=== PATIENT | male | born 1965 | race Two or more races ===

== ENCOUNTER 2022-10-20 10:43 | Outpatient (CLI) | payer OTHER ==
[~2022-10-20 10:43] MED LIST: ATENOLOL25 MG PO
== END 2022-10-20 10:47 | disposition home or self-care (01) ==
LOC: SONOGRAMA 10:43
PROVIDERS: ATTEND Pathology Anatomic Pathology & Clinical Pathology
DX: D34 Benign neoplasm of thyroid gland (principal); E04.9 Nontoxic goiter, unspecified; E03.9 Hypothyroidism, unspecified; E04.2 Nontoxic multinodular goiter